=== PATIENT | female | born 1970 | race Two or more races ===

== ENCOUNTER 2018-09-11 14:58 | Emergency (ER) | payer SELFPAY ==
[~2018-09-11] VITALS: Ht 160 cm; Wt 54.4 kg
[2018-09-11 15:24] VITALS: BP 142/66
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
--- NOTE | 2018-09-11 16:19 | RAD ---
Bilateral RIBS with chest, 5 views, 09/11/2018: HISTORY: Rib pain, fevers No rib fracture is identified. There are moderate costochondral calcifications. There are scattered spurs in the spine. The heart size is normal. There is no evidence of pneumothorax, hemothorax or pulmonary consolidation. IMPRESSION: No significant rib abnormality is detected. Electronically signed by: Nick Mata MD (09/11/2018 4:15 PM) [facility]
[2018-09-11] MEDS ORDERED: HYDR-971 PO (16:35)
[2018-09-11] MEDS ORDERED: IBUP-1007 PO (16:35)
[2018-09-11] MEDS ORDERED: HYDROcodone/APAP 5/325MG 1 TAB TABLET PO ONE (16:45)
== END 2018-09-11 16:50 | disposition home or self-care (01) ==
LOC: ER 14:58
DX: R07.81 Pleurodynia (principal); E11.9 Type 2 diabetes mellitus without complications; R05 Cough; R50.9 Fever, unspecified
CPT/HCPCS: 71111; 99284

== ENCOUNTER 2019-05-07 07:28 | Emergency (ER) | payer SELFPAY ==
[~2019-05-07] VITALS: Ht 162.6 cm; Wt 50.8 kg
[~2019-05-07 07:28] MED LIST: HYDR-3164 PO; IBUP-1007 PO
[2019-05-07] MEDS ORDERED: IV NORMAL SALINE 1000ML BAG 1,000 ML IV SCH (07:50)
--- NOTE | 2019-05-07 07:55 | PHYS DOC ---
Past Medical History Past Medical History: Diabetes-Type II, Hypertension Past Surgical History: No Surgical History Alcohol Use: None Drug Use: None Adult General Chief Complaint Chief Complaint: ABDOMINAL PAIN HPI HPI Patient is a 48-year-old female who presents to the emergency department for evaluation of rectal quadrant pain, began gradually last night and has been worsening. The patient states she has had a few episodes of vomiting, and 2 episodes of diarrhea, both of which have been nonbloody. She st ates she had one episode of pain like this several years ago but it went away on its own. She has not had any fevers or chills, denies any chest pain shortness of breath. Palpation of the affected areas as well as movement worsen her pain. There are no alleviating factors to her symptoms. Review of Systems Review of Systems Constitutional: Denies fever or chills [] Eyes: Denies change in visual acuity, redness, or eye pain [] HENT: Denies nasal congestion or sore throat [] Respiratory: Denies cough or shortness of breath [] Cardiovascular: The patient denies any shortness of breath, chest pain, palpitations, or orthopnea [] GI: No additional information not addressed in HPI [] : Denies dysuria or hematuria. LMP about a month ago.[] Musculoskeletal: Denies back pain or joint pain [] Integument: Denies rash or skin lesions [] Neurologic: Denies headache, focal weakness or sensory changes [] Endocrine: Denies polyuria or polydipsia [] All other systems were reviewed and found to be within normal limits, except as documented in this note. Current Medications Current Medications Current Medications Medications (Trade) Dose Ordered Sig/Abigail Start Time Stop Time Status Last Admin Dose Admin Ceftriaxone Sodium (Rocephin) 1 gm 1X ONCE 05/07/19 08:30 05/07/19 08:34 DC 05/07/19 08:47 1 GM Hydromorphone HCl (Dilaudid) 1 mg PRN Q15MIN PRN 05/07/19 08:00 05/08/19 07:59 05/07/19 08:04 1 MG Info (CONTRAST GIVEN -- Rx MONITORING) 1 each PRN DAILY PRN 05/07/19 09:00 05/09/19 08:59 Insulin Human Regular (HumuLIN R VIAL) 5 unit 1X ONCE 05/07/19 09:30 05/07/19 09:41 DC Iohexol (Omnipaque 300 Mg/ml) 75 ml 1X ONCE 05/07/19 09:00 05/07/19 09:01 DC 05/07/19 09:08 75 ML Ondansetron HCl (Zofran) 4 mg 1X ONCE 05/07/19 08:00 05/07/19 08:01 DC 05/07/19 08:02 4 MG Sodium Chloride 1,000 ml @ 1,000 mls/hr 1X ONCE 05/07/19 08:45 05/07/19 09:44 DC 05/07/19 08:51 1,000 MLS/HR Allergies Allergies Allergies Coded Allergies Type Severity Reaction Last Updated Verified No Known Drug Allergies 09/11/18 No Physical Exam Physical Exam PHYSICAL EXAM: CONSTITUTIONAL: Well developed, well nourished HEAD: normocephalic, atraumatic EENT: PERRL, EOMI. Conjunctivae normal color, sclerae non-icteric; moist mucous membranes. NECK: Supple, non-tender; no meningismus. LUNGS: Lungs CTA, breathing even and unlabored. Normal air movement. HEART: Regular tachycardia, no murmur CHEST: No deformity; non-tender ABDOMEN: The abdomen is soft, there is right upper quadrant tenderness to palpation, Allen's sign is positive, the remainder the abdomen is soft and non- tender, no masses or bruits. Normal bowel sounds are present. EXTREM: Normal ROM; no deformity, no calf tenderness. Normal pulses palpable in all extremities. There is no pedal edema. SKIN: No rash; no diaphoresis NEURO: Alert; normal speech and cognition; CN's grossly intact; strength grossly intact without focal deficit. BACK: There is mild right-sided CVA TTP. Current Patient Data Vital Signs Vital Signs Date Time Temp Pulse Resp B/P (MAP) Pulse Ox O2 Delivery O2 Flow Rate FiO2 05/07/19 08:55 13 95 Room Air 05/07/19 08:45 120 171/77 (108) 05/07/19 07:30 98.1 98.1 Lab Values Laboratory Tests Test 05/07/19 07:36 05/07/19 07:53 05/07/19 07:55 05/07/19 08:40 Urine Collection Type Unknown Urine Color Yellow Urine Clarity Cloudy Urine pH 6.0 Urine Specific [place] >=1.030 Urine Protein >=300 mg/dL (NEG-TRACE) Urine Glucose (UA) >=1000 mg/dL (NEG) Urine Ketones (Stick) Negative mg/dL (NEG) Urine Blood Moderate (NEG) Urine Nitrite Positive (NEG) Urine Bilirubin Negative (NEG) Urine Urobilinogen Dipstick 0.2 mg/dL (0.2 mg/dL) Urine Leukocyte Esterase Small (NEG) Urine RBC 3-5 /HPF (0-2) Urine WBC 11-20 /HPF (0-4) Urine Squamous Epithelial Cells Mod /LPF Urine Bacteria Many /HPF (0-FEW) POC Urine HCG, Qualitative Hcg negative (Negative) White Blood Count 9.7 x10^3/uL (4.0-11.0) Red Blood Count 4.53 x10^6/uL (3.50-5.40) Hemoglobin 13.0 g/dL (12.0-15.5) Hematocrit 37.7 % (36.0-47.0) Mean Corpuscular Volume 83 fL (79-100) Mean Corpuscular Hemoglobin 29 pg (25-35) Mean Corpuscular Hemoglobin Concent 34 g/dL (31-37) Red Cell Distribution Width 14.6 % (11.5-14.5) H Platelet Count 222 x10^3/uL (140-400) Neutrophils (%) (Auto) 88 % (31-73) H Lymphocytes (%) (Auto) 9 % (24-48) L Monocytes (%) (Auto) 1 % (0-9) Eosinophils (%) (Auto) 1 % (0-3) Basophils (%) (Auto) 1 % (0-3) Neutrophils # (Auto) 8.6 x10^3uL (1.8-7.7) H Lymphocytes # (Auto) 0.9 x10^3/uL (1.0-4.8) L Monocytes # (Auto) 0.1 x10^3/uL (0.0-1.1) Eosinophils # (Auto) 0.1 x10^3/uL (0.0-0.7) Basophils # (Auto) 0.1 x10^3/uL (0.0-0.2) Segmented Neutrophils % 75 % (35-66) H Band Neutrophils % 17 % (0-9) H Lymphocytes % 6 % (24-48) L Monocytes % 2 % (0-10) Platelet Estimate Adequate (ADEQUATE) Sodium Level 136 mmol/L (136-145) Potassium Level 3.4 mmol/L (3.5-5.1) L Chloride Level 101 mmol/L (98-107) Carbon Dioxide Level 26 mmol/L (21-32) Anion Gap 9 (6-14) Blood Urea Nitrogen 14 mg/dL (7-20) Creatinine 0.9 mg/dL (0.6-1.0) Estimated GFR (Cockcroft-Gault) 66.5 BUN/Creatinine Ratio 16 (6-20) Glucose Level 466 mg/dL (70-99) H Calcium Level 8.8 mg/dL (8.5-10.1) Total Bilirubin 0.5 mg/dL (0.2-1.0) Aspartate Amino Transferase (AST) 35 U/L (15-37) Alanine Aminotransferase (ALT) 36 U/L (14-59) Alkaline Phosphatase 193 U/L (46-116) H Troponin I Quantitative < 0.017 ng/mL (0.000-0.055) Total Protein 7.1 g/dL (6.4-8.2) Albumin 2.7 g/dL (3.4-5.0) L Albumin/Globulin Ratio 0.6 (1.0-1.7) L Lipase 233 U/L (73-393) Lactic Acid Level 1.4 mmol/L (0.4-2.0) Test 05/07/19 09:21 Glucose (Fingerstick) 372 mg/dL (70-99) H Laboratory Tests 05/07/19 07:55 Laboratory Tests 05/07/19 07:55 EKG EKG Normal sinus rhythm at a rate of 122 beats for minute, normal axis, normal intervals, nonspecific ST/T changes[] Radiology/Procedures Radiology/Procedures [PROCEDURE: ABDOMEN LTD Exam: Right Upper Quadrant Ultrasound 05/07/2019 7:50 AM Indication: Right upper quadrant pain Technique: Multiple realtime grayscale sonographic images were obtained over the abdomen. Static images were submitted for interpretation. Comparisons: None Visualized pancreas is unremarkable in appearance. Visualized IVC is unremarkable. The liver appears to be grossly normal in echotexture. The liver is grossly normal in size. No focal hepatic lesions are identified on provided images. No intrahepatic biliary dilatation is seen. The gallbladder is mildly distended. What appears to be inspissated sludge, possibly with component of small gallstones is seen within the dependent portion of the gallbladder. No gallbladder wall thickening is identified. No pericholecystic fluid is seen. The common bile duct is top normal in diameter measuring 5 mm. Right kidney is normal in appearance measuring 13 cm in length. IMPRESSION: 1. Inspissated sludge and possibly small stones within the gallbladder. No evidence of acute cholecystitis is identified by ultrasound. ] PROCEDURE: CT ABD PELV W/ IV CONTRST ONLY PQRS Compliance Statement: One or more of the following individualized dose reduction techniques were utilized for this examination: 1. Automated exposure control 2. Adjustment of the mA and/or kV according to patient size 3. Use of iterative reconstruction technique CT abdomen/pelvis with contrast 05/07/2019 8:43 AM INDICATION: Right-sided abdominal pain COMPARISON: None available TECHNIQUE: Multiple axial CT images of the abdomen and pelvis were obtained after the intravenous administration of nonionic contrast. Coronal and sagittal reformats are provided. FINDINGS: Lung bases are clear. Heart size is within normal limits. Liver, spleen, bilateral adrenal glands and pancreas are normal in appearance. Focal high density is identified within the dependent portion of the bladder suggestive of gallstones. Small and large bowel are normal in caliber. There is no evidence for bowel obstruction. There are no pericolonic inflammatory changes. A normal, nondilated appendix is visualized without adjacent inflammatory changes. Abdominal aorta is normal in course and caliber. There is no free intraperitoneal air. There is a striated nephrogram on the right predominantly involving the posterior and superomedial right kidney. Extensive right perinephric fat stranding is identified. There is urothelial enhancement on the right renal pelvis and right ureter. Right periureteral fat stranding is identified. Small volume ascites is identified in the right retroperitoneum. Gas is identified within the urinary bladder. Correlate with any recent instrumentation. No hydronephrosis. Left kidney is normal in appearance. IUD is present. Superior plate compression deformity of T12 appears chronic with mild retropulsion of the superior endplate and 50 percent height loss. IMPRESSION: 1. Striated nephrogram on the right with extensive perinephric and periureteral fat stranding suspicious for pyelonephritis. Urothelial enhancement along the right ureter is compatible with pyelitis. 2. Gas identified within the urinary bladder. Correlate with any history of recent instrumentation. 3. IUD is present. 4. Chronic appearing superior endplate compression deformity at T12 with 50 percent height loss and mild retropulsion. 5. Suspect cholelithiasis versus polyp. Course & Med Decision Making Course & Med Decision Making Pertinent Labs and Imaging studies reviewed. (See chart for details) []9:50 AM: The patient's condition remains stable, she is feeling better, and her tachycardia has improved after IV hydration. After thorough evaluation, I do not feel that her gallbladder is the cause of her symptoms today, although she certainly will need this further evaluated as an outpatient. I discussed the case with the patient via her nurse, who is bilingual, discussed the diagnosis, test results, home care plan, need for follow-up, and return precautions. The patient does take metformin for diabetes. Dragon Disclaimer Dragon Disclaimer This electronic medical record was generated, in whole or in part, using a voice recognition dictation system. Departure Departure Impression: Primary Impression: Pyelonephritis Additional Impressions: Hyperglycemia Cholelithiasis Disposition: 01 HOME, SELF-CARE Condition: STABLE Referrals: REMY ROCHA MD Patient Instructions: Cholelithiasis, Hyperglycemia, Pyelonephritis, Adult Additional Instructions: Follow-up with your primary care for further monitoring and evaluation of your urinary tract infection as well as your diabetes. Follow-up with general surgery for further evaluation of your gallbladder, using the phone number provided. Scripts Ondansetron Hcl (ZOFRAN) 4 Mg Tablet 1 TAB PO Q6HRS PRN for NAUSEA/VOMITING, #20 TAB Prov: BURTON CAMPBELL MD 05/07/19 Acetaminophen With Codeine (TYLENOL WITH CODEINE #3 TABLET) 1 Each Tablet 1 TAB PO PRN Q6HRS PRN for PAIN, #15 TAB Prov: BURTON CAMPBELL MD 05/07/19 Sulfamethoxazole/Trimethoprim (BACTRIM DS TABLET) 1 Each Tablet 1 TAB PO BID, #20 TAB Prov: BURTON CAMPBELL MD 05/07/19 Problem Qualifiers BURTON CAMPBELL MD May 07, 2019 07:55
[2019-05-07] MEDS ORDERED: HYDROmorphone 2 MG/ML VIAL IV/SQ PRN (08:00)
[2019-05-07] MEDS ORDERED: ONDANSETRON PF 4 MG/2 ML VIAL. IV ONE (08:00)
[2019-05-07 08:04] LABS: BASO # 0.1 x10^3/uL (0.0-0.2); BASO % 1 % (0-3); EOS # 0.1 x10^3/uL (0.0-0.7); EOS % 1 % (0-3); HEMATOCRIT 37.7 % (36.0-47.0); LYMPH # 0.9 x10^3/uL (1.0-4.8); LYMPH % 9 % (24-48); MEAN CORPUSCULAR HEMOGLOBIN 29 pg (25-35); MEAN CORPUSCULAR HGB CONC 34 g/dL (31-37); MEAN CORPUSCULAR VOLUME 83 fL (79-100); MONO # 0.1 x10^3/uL (0.0-1.1); MONO % 1 % (0-9); NEUT # 8.6 x10^3uL (1.8-7.7); NEUT % 88 % (31-73); PLATELET COUNT 222 x10^3/uL (140-400); RED BLOOD COUNT 4.53 x10^6/uL (3.50-5.40); RED CELL DISTRIBUTION WIDTH 14.6 % (11.5-14.5); WHITE BLOOD COUNT 9.7 x10^3/uL (4.0-11.0)
[2019-05-07 08:08] LABS: BILIRUBIN,URINE NEGATIVE (NEG); CLARITY,URINE CLOUDY; COLOR,URINE YELLOW; NITRITE,URINE POSITIVE (NEG); PROTEIN,URINE >=300 mg/dL (NEG-TRACE); UROBILINOGEN,URINE 0.2 mg/dL (0.2 mg/dL)
[2019-05-07 08:20] LABS: SQUAMOUS EPITHELIAL CELL,UR MOD /LPF
[2019-05-07 08:22] LABS: BACTERIA,URINE MANY /HPF (0-FEW)
[2019-05-07 08:27] LABS: CALCIUM 8.8 mg/dL (8.5-10.1); CREATININE 0.9 mg/dL (0.6-1.0); GFR 66.5; POTASSIUM 3.4 mmol/L (3.5-5.1)
--- NOTE | 2019-05-07 08:27 | RAD ---
Exam: Right Upper Quadrant Ultrasound 05/07/2019 7:50 AM Indication: Right upper quadrant pain Technique: Multiple realtime grayscale sonographic images were obtained over the abdomen. Static images were submitted for interpretation. Comparisons: None Visualized pancreas is unremarkable in appearance. Visualized IVC is unremarkable. The liver appears to be grossly normal in echotexture. The liver is grossly normal in size. No focal hepatic lesions are identified on provided images. No intrahepatic biliary dilatation is seen. The gallbladder is mildly distended. What appears to be inspissated sludge, possibly with component of small gallstones is seen within the dependent portion of the gallbladder. No gallbladder wall thickening is identified. No pericholecystic fluid is seen. The common bile duct is top normal in diameter measuring 5 mm. Right kidney is normal in appearance measuring 13 cm in length. IMPRESSION: 1. Inspissated sludge and possibly small stones within the gallbladder. No evidence of acute cholecystitis is identified by ultrasound. Electronically signed by: Kiet Bee MD (05/07/2019 8:24 AM) [id number]
[2019-05-07] MEDS ORDERED: cefTRIAXone IV Push 1 GM VIAL. IVP ONE (08:30)
[2019-05-07 08:33] LABS: ALBUMIN 2.7 g/dL (3.4-5.0); ALBUMIN/GLOBULIN RATIO 0.6 (1.0-1.7); TOTAL BILIRUBIN 0.5 mg/dL (0.2-1.0); TOTAL PROTEIN 7.1 g/dL (6.4-8.2)
--- NOTE | 2019-05-07 08:44 | EKG ---
[facility] [address] [place] [address] Test Date: 2019-05-07 Test Time: 08:15:36 Pat Name: CRISTOBAL WHEATLEY Department: Room: Gender: F Licensed Practical Nurse Clinic Nurse: : 1970 Requested By: BURTON CAMPBELL Order Number: [id number] Reading MD: Measurements Intervals [place] Rate: 122 P: 38 AL: 116 QRS: 34 QRSD: 88 T: 14 QT: 360 QTc: 514 Interpretive Statements SINUS TACHYCARDIA NO SPECIFIC ECG ABNORMALITIES RI6.01 No previous ECG available for comparison
[2019-05-07] MEDS ORDERED: IV NORMAL SALINE 1000ML BAG 1,000 ML IV ONE (08:45)
[2019-05-07 08:46] LABS: % BANDS 17 % (0-9); % LYMPHS 6 % (24-48); % MONOS 2 % (0-10); % SEGS 75 % (35-66)
[2019-05-07 08:47] LABS: PLT ESTIMATE ADEQUATE (ADEQUATE)
[2019-05-07] MEDS ORDERED: IOHEXOL 300 MG/ML 100ML VIAL. IV ONE (09:00)
[2019-05-07] MEDS ORDERED: CONTRAST GIVEN. MC PRN (09:00)
--- NOTE | 2019-05-07 09:24 | RAD ---
PQRS Compliance Statement: One or more of the following individualized dose reduction techniques were utilized for this examination: 1. Automated exposure control 2. Adjustment of the mA and/or kV according to patient size 3. Use of iterative reconstruction technique CT abdomen/pelvis with contrast 05/07/2019 8:43 AM INDICATION: Right-sided abdominal pain COMPARISON: None available TECHNIQUE: Multiple axial CT images of the abdomen and pelvis were obtained after the intravenous administration of nonionic contrast. Coronal and sagittal reformats are provided. FINDINGS: Lung bases are clear. Heart size is within normal limits. Liver, spleen, bilateral adrenal glands and pancreas are normal in appearance. Focal high density is identified within the dependent portion of the bladder suggestive of gallstones. Small and large bowel are normal in caliber. There is no evidence for bowel obstruction. There are no pericolonic inflammatory changes. A normal, nondilated appendix is visualized without adjacent inflammatory changes. Abdominal aorta is normal in course and caliber. There is no free intraperitoneal air. There is a striated nephrogram on the right predominantly involving the posterior and superomedial right kidney. Extensive right perinephric fat stranding is identified. There is urothelial enhancement on the right renal pelvis and right ureter. Right periureteral fat stranding is identified. Small volume ascites is identified in the right retroperitoneum. Gas is identified within the urinary bladder. Correlate with any recent instrumentation. No hydronephrosis. Left kidney is normal in appearance. IUD is present. Superior plate compression deformity of T12 appears chronic with mild retropulsion of the superior endplate and 50 percent height loss. IMPRESSION: 1. Striated nephrogram on the right with extensive perinephric and periureteral fat stranding suspicious for pyelonephritis. Urothelial enhancement along the right ureter is compatible with pyelitis. 2. Gas identified within the urinary bladder. Correlate with any history of recent instrumentation. 3. IUD is present. 4. Chronic appearing superior endplate compression deformity at T12 with 50 percent height loss and mild retropulsion. 5. Suspect cholelithiasis versus polyp. Electronically signed by: Geno Portillo MD (05/07/2019 9:21 AM) [id number]
[2019-05-07] MEDS ORDERED: INSULIN REGULAR 100 UNIT/ML 3ML VIAL. IV ONE (09:30)
[2019-05-07] MEDS ORDERED: ONDA4TAB7 PO (09:57)
[2019-05-07] MEDS ORDERED: ACET-704 PO (09:57)
[2019-05-07] MEDS ORDERED: SULF1TAB24 PO (09:57)
[2019-05-07 10:11] VITALS: BP 107/56
== END 2019-05-07 10:42 | disposition home or self-care (01) ==
LOC: ER 07:28
DX: N12 Tubulo-interstitial nephritis, not specified as acute or chronic (principal); K80.20 Calculus of gallbladder without cholecystitis without obstruction; E11.65 Type 2 diabetes mellitus with hyperglycemia; I10 Essential (primary) hypertension; R19.7 Diarrhea, unspecified
CPT/HCPCS: 36415; 74177; 76705; 80053; 81001; 81025; 82962; 83605; 83690; 84484; 85007; 85025; 87040; 87086; 93005; 96361; 96374; 96375; 99285; J0696; J1170; J1815; J2405; J7030; Q9967

== ENCOUNTER 2019-05-28 22:27 | Emergency (ER) | payer SELFPAY ==
[~2019-05-28] VITALS: Ht 149.9 cm; Wt 50.8 kg
[~2019-05-28 22:27] MED LIST changes: +ACET-704 PO; +ONDA4TAB7 PO; +SULF1TAB24 PO
--- NOTE | 2019-05-28 23:18 | PHYS DOC ---
Past Medical History Past Medical History: Diabetes-Type II, Hypertension Past Surgical History: No Surgical History Alcohol Use: None Drug Use: None Adult General Chief Complaint Chief Complaint: FLANK PAIN HPI HPI Patient is a 48-year-old female who presents with two-hour history of acute flank pain. Patient states that pain started in her right back and has gotten to wear its radiating around to the front. She has had some nausea and vomiting. Patient does admit to a history of kidney stones. She rates pain to be a 10 out of 10. Patient states that nothing improves the pain. She describes pain as like a deep ache throughout her flank. She denies any urinary discomfort.[] Review of Systems Review of Systems Constitutional: Denies fever or chills [] Respiratory: Denies cough or shortness of breath [] Cardiovascular: No additional information not addressed in HPI [] GI: Complains of right flank/abdominal pain with nausea and vomiting. Denies diarrhea [] : Denies dysuria or hematuria [] Musculoskeletal: Complains of right-sided lower back pain [] All other systems were reviewed and found to be within normal limits, except as documented in this note. Current Medications Current Medications Current Medications Medications (Trade) Dose Ordered Sig/Abigail Start Time Stop Time Status Last Admin Dose Admin Ceftriaxone Sodium (Rocephin) 1 gm 1X ONCE 05/29/19 00:45 05/29/19 00:46 DC 05/29/19 00:54 1 GM Hydromorphone HCl (Dilaudid) 0.5 mg PRN Q15MIN PRN 05/28/19 23:30 05/29/19 23:29 05/29/19 00:03 0.5 MG Insulin Human Regular (HumuLIN R VIAL) 15 unit 1X ONCE 05/29/19 00:30 05/29/19 00:31 DC 05/29/19 00:53 15 UNIT Ondansetron HCl (Zofran) 4 mg 1X ONCE 05/28/19 23:30 05/28/19 23:31 DC 05/29/19 00:01 4 MG Sodium Chloride 1,000 ml @ 1,000 mls/hr Q1H 05/28/19 23:30 05/29/19 00:29 DC 05/29/19 00:05 1,000 MLS/HR Allergies Allergies Allergies Coded Allergies Type Severity Reaction Last Updated Verified No Known Drug Allergies 09/11/18 No Physical Exam Physical Exam Constitutional: Well developed, well nourished, in mild distress, non-toxic appearance. [] HENT: Normocephalic, atraumatic, bilateral external ears normal, oropharynx moist, no oral exudates, nose normal. [] Eyes: PERRLA, EOMI, conjunctiva normal, no discharge. [] Neck: Normal range of motion, no tenderness, supple, no stridor. [] Cardiovascular:Heart rate regular rhythm, no murmur [] Lungs & Thorax: Bilateral breath sounds clear to auscultation [] Abdomen: Bowel sounds normal, soft, no tenderness. [] Skin: Warm, dry, no erythema, no rash. [] Extremities: No tenderness, no cyanosis, no clubbing, ROM intact, no edema. [] Neurologic: Alert and oriented X 3, no focal deficits noted. [] Current Patient Data Vital Signs Vital Signs Date Time Temp Pulse Resp B/P (MAP) Pulse Ox O2 Delivery O2 Flow Rate FiO2 05/29/19 00:03 16 97 Room Air 05/28/19 22:43 98.1 109 106/57 (73) 98.1 Lab Values Laboratory Tests Test 05/28/19 22:50 05/28/19 22:55 05/28/19 23:58 Urine Collection Type Void Urine Color Yellow Urine Clarity Cloudy Urine pH 5.5 Urine Specific [place] >=1.030 Urine Protein 100 mg/dL (NEG-TRACE) Urine Glucose (UA) >=1000 mg/dL (NEG) Urine Ketones (Stick) Negative mg/dL (NEG) Urine Blood Large (NEG) Urine Nitrite Negative (NEG) Urine Bilirubin Negative (NEG) Urine Urobilinogen Dipstick 0.2 mg/dL (0.2 mg/dL) Urine Leukocyte Esterase Small (NEG) Urine RBC Tntc /HPF (0-2) Urine WBC Tntc /HPF (0-4) Urine Squamous Epithelial Cells Few /LPF Urine Bacteria Many /HPF (0-FEW) POC Urine HCG, Qualitative Hcg negative (Negative) White Blood Count 11.5 x10^3/uL (4.0-11.0) H Red Blood Count 4.54 x10^6/uL (3.50-5.40) Hemoglobin 13.0 g/dL (12.0-15.5) Hematocrit 37.8 % (36.0-47.0) Mean Corpuscular Volume 83 fL (79-100) Mean Corpuscular Hemoglobin 29 pg (25-35) Mean Corpuscular Hemoglobin Concent 35 g/dL (31-37) Red Cell Distribution Width 14.8 % (11.5-14.5) H Platelet Count 233 x10^3/uL (140-400) Neutrophils (%) (Auto) 93 % (31-73) H Lymphocytes (%) (Auto) 4 % (24-48) L Monocytes (%) (Auto) 3 % (0-9) Eosinophils (%) (Auto) 0 % (0-3) Basophils (%) (Auto) 0 % (0-3) Neutrophils # (Auto) 10.7 x10^3/uL (1.8-7.7) H Lymphocytes # (Auto) 0.5 x10^3/uL (1.0-4.8) L Monocytes # (Auto) 0.3 x10^3/uL (0.0-1.1) Eosinophils # (Auto) 0.0 x10^3/uL (0.0-0.7) Basophils # (Auto) 0.0 x10^3/uL (0.0-0.2) Platelet Estimate Pending Sodium Level 131 mmol/L (136-145) L Potassium Level 3.9 mmol/L (3.5-5.1) Chloride Level 95 mmol/L (98-107) L Carbon Dioxide Level 27 mmol/L (21-32) Anion Gap 9 (6-14) Blood Urea Nitrogen 17 mg/dL (7-20) Creatinine 1.1 mg/dL (0.6-1.0) H Estimated GFR (Cockcroft-Gault) 52.8 BUN/Creatinine Ratio 15 (6-20) Glucose Level 590 mg/dL (70-99) *H Calcium Level 8.6 mg/dL (8.5-10.1) Total Bilirubin 0.7 mg/dL (0.2-1.0) Aspartate Amino Transferase (AST) 23 U/L (15-37) Alanine Aminotransferase (ALT) 30 U/L (14-59) Alkaline Phosphatase 204 U/L (46-116) H Total Protein 6.4 g/dL (6.4-8.2) Albumin 2.7 g/dL (3.4-5.0) L Albumin/Globulin Ratio 0.7 (1.0-1.7) L Laboratory Tests 05/28/19 23:58 Laboratory Tests 05/28/19 23:58 EKG EKG [] Radiology/Procedures Radiology/Procedures [] Impressions: PROCEDURE: CT ABDOMEN PELVIS WO CONTRAST INDICATION: Right flank pain COMPARISON: May 07, 2019 TECHNIQUE: Axial CT images obtained through the abdomen and pelvis without contrast. Limited assessment of solid organ structures and vasculature secondary to lack of intravenous contrast.. One or more of the following individualized dose reduction techniques were utilized for this examination: 1. Automated exposure control; 2. Adjustment of the mA and/or kV according to patient size; 3. Use of iterative reconstruction technique. FINDINGS: Moderate calcific atherosclerosis. Suspected gallstones. Gallbladder somewhat distended at time of exam. Poor evaluation of pancreas without contrast. Spleen unremarkable. No left-sided hydronephrosis. Urinary bladder wall is prominent with air within the urinary bladder. Intrauterine device. Fluid and edema seen adjacent to the right kidney. The appendix is likely partially seen without definitive adjacent inflammatory changes. Calcification left side of uterus, could be from causes such as fibroid. Edema of soft tissues. Degenerative changes the spine with multilevel central canal and neural foraminal stenosis. IMPRESSION: 1. There is repeat demonstration of edema and fluid adjacent to the right kidney. Again this could be secondary to infectious causes such as pyelonephritis. 2. The urinary bladder also has a prominent appearing wall therefore cystitis is also a possibility. There is again air within the urinary bladder. Would correlate as to whether the patient had recent instrumentation that could introduce air to ensure that this is not secondary to a pathologic cause such as a fistula to the bowel or infection with a gas-forming organism. 3. Moderate compression fracture of T12 with retropulsion again seen. 4. Gallstones. Electronically signed by: Madhav Pandey MD (05/29/2019 12:09 AM) [facility] Course & Med Decision Making Course & Med Decision Making Pertinent Labs and Imaging studies reviewed. (See chart for details) [] Dragon Disclaimer Dragon Disclaimer This electronic medical record was generated, in whole or in part, using a voice recognition dictation system. Departure Departure Impression: Primary Impression: Urinary tract infection Additional Impression: Hyperglycemia Disposition: 01 HOME, SELF-CARE Condition: STABLE Referrals: NO PCP (PCP) Patient Instructions: Hyperglycemia, Pyelonephritis, Adult Scripts Promethazine Hcl (PROMETHAZINE HCL) 12.5 Mg Tablet 1 TAB PO Q6HRS PRN for NAUSEA, #12 TAB Prov: AN JADE Jr. DO 05/29/19 Hydrocodone/Apap 5-325 (NORCO 5-325 TABLET) 1 Each Tablet 1 EACH PO PRN Q6HRS PRN for PAIN, #15 as needed for pain Prov: AN JADE Jr. DO 05/29/19 Sulfamethoxazole/Trimethoprim (BACTRIM DS TABLET) 1 Each Tablet 1 TAB PO BID, #20 TAB Prov: AN AJDE Jr. DO 05/29/19 Problem Qualifiers Primary Impression: Urinary tract infection Urinary tract infection type: site unspecified Hematuria presence: with hematuria Qualified Codes: N39.0 - Urinary tract infection, site not specified; R31.9 - Hematuria, unspecified AN JADE Jr. DO May 28, 2019 23:18
[2019-05-28 23:21] LABS: BILIRUBIN,URINE NEGATIVE (NEG); CLARITY,URINE CLOUDY; COLOR,URINE YELLOW; NITRITE,URINE NEGATIVE (NEG); PH,URINE 5.5; PROTEIN,URINE 100 mg/dL (NEG-TRACE); UROBILINOGEN,URINE 0.2 mg/dL (0.2 mg/dL)
[2019-05-28] MEDS ORDERED: IV NORMAL SALINE 1000ML BAG 1,000 ML IV SCH (23:30)
[2019-05-28] MEDS ORDERED: HYDROmorphone 2 MG/ML VIAL IV/SQ PRN (23:30)
[2019-05-28] MEDS ORDERED: ONDANSETRON PF 4 MG/2 ML VIAL. IV ONE (23:30)
[2019-05-28 23:31] LABS: BACTERIA,URINE MANY /HPF (0-FEW); RBC,URINE TNTC /HPF (0-2); SQUAMOUS EPITHELIAL CELL,UR FEW /LPF; WBC,URINE TNTC /HPF (0-4)
[2019-05-29 00:03] LABS: BASO % 0 % (0-3); EOS % 0 % (0-3); HEMATOCRIT 37.8 % (36.0-47.0); LYMPH # 0.5 x10^3/uL (1.0-4.8); LYMPH % 4 % (24-48); MEAN CORPUSCULAR HEMOGLOBIN 29 pg (25-35); MEAN CORPUSCULAR HGB CONC 35 g/dL (31-37); MEAN CORPUSCULAR VOLUME 83 fL (79-100); MONO # 0.3 x10^3/uL (0.0-1.1); MONO % 3 % (0-9); NEUT # 10.7 x10^3/uL (1.8-7.7); NEUT % 93 % (31-73); PLATELET COUNT 233 x10^3/uL (140-400); RED BLOOD COUNT 4.54 x10^6/uL (3.50-5.40); RED CELL DISTRIBUTION WIDTH 14.8 % (11.5-14.5); WHITE BLOOD COUNT 11.5 x10^3/uL (4.0-11.0)
--- NOTE | 2019-05-29 00:12 | RAD ---
INDICATION: Right flank pain COMPARISON: May 07, 2019 TECHNIQUE: Axial CT images obtained through the abdomen and pelvis without contrast. Limited assessment of solid organ structures and vasculature secondary to lack of intravenous contrast.. One or more of the following individualized dose reduction techniques were utilized for this examination: 1. Automated exposure control; 2. Adjustment of the mA and/or kV according to patient size; 3. Use of iterative reconstruction technique. FINDINGS: Moderate calcific atherosclerosis. Suspected gallstones. Gallbladder somewhat distended at time of exam. Poor evaluation of pancreas without contrast. Spleen unremarkable. No left-sided hydronephrosis. Urinary bladder wall is prominent with air within the urinary bladder. Intrauterine device. Fluid and edema seen adjacent to the right kidney. The appendix is likely partially seen without definitive adjacent inflammatory changes. Calcification left side of uterus, could be from causes such as fibroid. Edema of soft tissues. Degenerative changes the spine with multilevel central canal and neural foraminal stenosis. IMPRESSION: 1. There is repeat demonstration of edema and fluid adjacent to the right kidney. Again this could be secondary to infectious causes such as pyelonephritis. 2. The urinary bladder also has a prominent appearing wall therefore cystitis is also a possibility. There is again air within the urinary bladder. Would correlate as to whether the patient had recent instrumentation that could introduce air to ensure that this is not secondary to a pathologic cause such as a fistula to the bowel or infection with a gas-forming organism. 3. Moderate compression fracture of T12 with retropulsion again seen. 4. Gallstones. Electronically signed by: Madhav Pandey MD (05/29/2019 12:09 AM) [facility]
[2019-05-29 00:18] LABS: ALBUMIN 2.7 g/dL (3.4-5.0); ALBUMIN/GLOBULIN RATIO 0.7 (1.0-1.7); CALCIUM 8.6 mg/dL (8.5-10.1); CREATININE 1.1 mg/dL (0.6-1.0); GFR 52.8; POTASSIUM 3.9 mmol/L (3.5-5.1); TOTAL BILIRUBIN 0.7 mg/dL (0.2-1.0); TOTAL PROTEIN 6.4 g/dL (6.4-8.2)
[2019-05-29] MEDS ORDERED: INSULIN REGULAR 100 UNIT/ML 3ML VIAL. IV ONE (00:30)
[2019-05-29] MEDS ORDERED: cefTRIAXone IV Push 1 GM VIAL. IVP ONE (00:45)
[2019-05-29] MEDS ORDERED: HYDR-3164 PO (02:11)
[2019-05-29] MEDS ORDERED: PROM12.58 PO (02:11)
[2019-05-29] MEDS ORDERED: SULF1TAB24 PO (02:11)
[2019-05-29 02:28] LABS: % BANDS 17 % (0-9); % LYMPHS 7 % (24-48); % MONOS 1 % (0-10); % SEGS 75 % (35-66); PLT ESTIMATE ADEQUATE (ADEQUATE)
[2019-05-29 02:30] VITALS: BP 90/58
== END 2019-05-29 02:34 | disposition home or self-care (01) ==
LOC: ER 22:27
DX: N39.0 Urinary tract infection, site not specified (principal); E11.65 Type 2 diabetes mellitus with hyperglycemia; R11.2 Nausea with vomiting, unspecified; I10 Essential (primary) hypertension; Z87.442 Personal history of urinary calculi
CPT/HCPCS: 36415; 74176; 80053; 81001; 81025; 82962; 85007; 85025; 87086; 87186; 96361; 96374; 96375; 99285; J0696; J1170; J1815; J2405; J7030; 99284

== ENCOUNTER 2019-10-27 18:32 | Emergency (ER) | payer SELFPAY ==
[~2019-10-27] VITALS: Ht 165.1 cm; Wt 54.4 kg
[~2019-10-27 18:32] MED LIST changes: +PROM12.58 PO
[2019-10-27] MEDS ORDERED: LIDOCAINE 2% 20 ML VIAL. IJ STA (19:23)
[2019-10-27 19:50] LABS: BASO # 0.1 x10^3/uL (0.0-0.2); BASO % 1 % (0-3); EOS % 1 % (0-3); HEMATOCRIT 35.9 % (36.0-47.0); HEMOGLOBIN 12.4 g/dL (12.0-15.5); LYMPH # 1.2 x10^3/uL (1.0-4.8); LYMPH % 19 % (24-48); MEAN CORPUSCULAR HEMOGLOBIN 30 pg (25-35); MEAN CORPUSCULAR HGB CONC 35 g/dL (31-37); MEAN CORPUSCULAR VOLUME 86 fL (79-100); MONO # 0.4 x10^3/uL (0.0-1.1); MONO % 6 % (0-9); NEUT # 4.6 x10^3/uL (1.8-7.7); NEUT % 73 % (31-73); PLATELET COUNT 276 x10^3/uL (140-400); RED BLOOD COUNT 4.15 x10^6/uL (3.50-5.40); RED CELL DISTRIBUTION WIDTH 13.6 % (11.5-14.5); WHITE BLOOD COUNT 6.2 x10^3/uL (4.0-11.0)
[2019-10-27 20:01] LABS: ALBUMIN 2.7 g/dL (3.4-5.0); ALBUMIN/GLOBULIN RATIO 0.6 (1.0-1.7); CALCIUM 8.8 mg/dL (8.5-10.1); CREATININE 1.2 mg/dL (0.6-1.0); GFR 47.6; POTASSIUM 4.1 mmol/L (3.5-5.1); TOTAL BILIRUBIN 0.3 mg/dL (0.2-1.0); TOTAL PROTEIN 7.4 g/dL (6.4-8.2)
[2019-10-27] MEDS ORDERED: KETOROLAC 15 MG/ML VIAL. IV STA (20:02)
--- NOTE | 2019-10-27 20:02 | PHYS DOC ---
Past Medical History Past Medical History: Diabetes-Type II, Hypertension Past Surgical History: No Surgical History Alcohol Use: None Drug Use: None Adult General Chief Complaint Chief Complaint: HEADACHE HPI HPI Patient is a 49 year old female who presents with right-sided headache located in the occipital portion of the head, neck pain, light sensitivity, noise sensitivity, dizziness that started 3 hours ago. The patient rates her pain as 8 out of 10 in severity. Patient also having nausea, and vomiting. Denies history of migraines. [employer] # [id number] Review of Systems Review of Systems Constitutional: Denies fever or chills [] Eyes: Denies change in visual acuity, redness, or eye pain [] HENT: Denies nasal congestion or sore throat [] Respiratory: Denies cough or shortness of breath [] Cardiovascular: No additional information not addressed in HPI [] GI: Reports nausea, and vomiting, Denies abdominal pain, bloody stools or diarrhea [] : Denies dysuria or hematuria [] Musculoskeletal: Reports right upper back pain/neck pain. Integument: Denies rash or skin lesions [] Neurologic: Reports dizziness, and headache, Denies focal weakness or sensory changes [] Endocrine: Denies polyuria or polydipsia [] Complete systems were reviewed and found to be within normal limits, except as documented in this note. Current Medications Current Medications Current Medications Medications (Trade) Dose Ordered Sig/Abigail Start Time Stop Time Status Last Admin Dose Admin Insulin Human Regular (HumuLIN R VIAL) 10 unit 1X STAT 10/27/19 20:05 10/27/19 20:08 DC 10/27/19 20:21 10 UNIT Ketorolac Tromethamine (Toradol 15mg Vial) 10 mg 1X STAT 10/27/19 20:02 10/27/19 20:08 DC Lidocaine HCl 20 ml 1X STAT 10/27/19 19:23 10/27/19 19:27 DC 10/27/19 19:23 20 ML Orphenadrine Citrate (Norflex) 60 mg 1X ONCE 10/27/19 20:15 10/27/19 20:16 DC Prochlorperazine Edisylate (Compazine) 10 mg 1X ONCE 10/27/19 20:15 10/27/19 20:16 DC Sodium Chloride 1,000 ml @ 1,000 mls/hr 1X STAT 10/27/19 20:05 10/27/19 21:04 DC 10/27/19 20:05 1,000 MLS/HR Allergies Allergies Allergies Coded Allergies Type Severity Reaction Last Updated Verified No Known Drug Allergies 09/11/18 No Physical Exam Physical Exam Constitutional: Well developed, well nourished, no acute distress, non-toxic appearance. [] HENT: Normocephalic, atraumatic, bilateral external ears normal, oropharynx moist, no oral exudates, nose normal. [] Eyes: PERRLA, EOMI, conjunctiva normal, no discharge. [] Neck: trigger points to right neck and into upper back along trap muscle, supple, no stridor. [] Cardiovascular:Heart rate regular rhythm, no murmur [] Lungs & Thorax: Bilateral breath sounds clear to auscultation [] Abdomen: Bowel sounds normal, soft, no tenderness, no masses, no pulsatile masses. [] Skin: Warm, dry, no erythema, no rash. [] Back: Upper back tenderness with trigger point. Neurologic: Alert and oriented X 3, normal motor function, normal sensory function, no focal deficits noted. [] Psychologic: Affect normal, judgement normal, mood normal. [] Current Patient Data Vital Signs Vital Signs Date Time Temp Pulse Resp B/P (MAP) Pulse Ox O2 Delivery O2 Flow Rate FiO2 10/27/19 18:40 98.2 94 12 159/60 (93) 98 98.2 Lab Values Laboratory Tests Test 10/27/19 19:40 10/27/19 21:14 10/27/19 21:34 White Blood Count 6.2 x10^3/uL (4.0-11.0) Red Blood Count 4.15 x10^6/uL (3.50-5.40) Hemoglobin 12.4 g/dL (12.0-15.5) Hematocrit 35.9 % (36.0-47.0) L Mean Corpuscular Volume 86 fL (79-100) Mean Corpuscular Hemoglobin 30 pg (25-35) Mean Corpuscular Hemoglobin Concent 35 g/dL (31-37) Red Cell Distribution Width 13.6 % (11.5-14.5) Platelet Count 276 x10^3/uL (140-400) Neutrophils (%) (Auto) 73 % (31-73) Lymphocytes (%) (Auto) 19 % (24-48) L Monocytes (%) (Auto) 6 % (0-9) Eosinophils (%) (Auto) 1 % (0-3) Basophils (%) (Auto) 1 % (0-3) Neutrophils # (Auto) 4.6 x10^3/uL (1.8-7.7) Lymphocytes # (Auto) 1.2 x10^3/uL (1.0-4.8) Monocytes # (Auto) 0.4 x10^3/uL (0.0-1.1) Eosinophils # (Auto) 0.0 x10^3/uL (0.0-0.7) Basophils # (Auto) 0.1 x10^3/uL (0.0-0.2) Sodium Level 132 mmol/L (136-145) L Potassium Level 4.1 mmol/L (3.5-5.1) Chloride Level 97 mmol/L (98-107) L Carbon Dioxide Level 29 mmol/L (21-32) Anion Gap 6 (6-14) Blood Urea Nitrogen 19 mg/dL (7-20) Creatinine 1.2 mg/dL (0.6-1.0) H Estimated GFR (Cockcroft-Gault) 47.6 BUN/Creatinine Ratio 16 (6-20) Glucose Level 528 mg/dL (70-99) *H Calcium Level 8.8 mg/dL (8.5-10.1) Total Bilirubin 0.3 mg/dL (0.2-1.0) Aspartate Amino Transferase (AST) 13 U/L (15-37) L Alanine Aminotransferase (ALT) 16 U/L (14-59) Alkaline Phosphatase 136 U/L (46-116) H Total Protein 7.4 g/dL (6.4-8.2) Albumin 2.7 g/dL (3.4-5.0) L Albumin/Globulin Ratio 0.6 (1.0-1.7) L Acetone Level Neg (NEG) Urine Collection Type Unknown Urine Color Yellow Urine Clarity Clear Urine pH 5.5 Urine Specific [place] >=1.030 Urine Protein 100 mg/dL (NEG-TRACE) Urine Glucose (UA) >=1000 mg/dL (NEG) Urine Ketones (Stick) Negative mg/dL (NEG) Urine Blood Moderate (NEG) Urine Nitrite Negative (NEG) Urine Bilirubin Negative (NEG) Urine Urobilinogen Dipstick 0.2 mg/dL (0.2 mg/dL) Urine Leukocyte Esterase Moderate (NEG) Urine RBC 6-10 /HPF (0-2) Urine WBC Tntc /HPF (0-4) Urine Squamous Epithelial Cells Few /LPF Urine Bacteria Many /HPF (0-FEW) Glucose (Fingerstick) 251 mg/dL (70-99) H Laboratory Tests 10/27/19 19:40 Laboratory Tests 10/27/19 19:40 EKG EKG [] Radiology/Procedures Radiology/Procedures [][facility] [address] [place] [address] IMAGING REPORT Signed PATIENT: BEN WHEATLEYOUNT: [id number] : 1970 LOCATION: ER AGE: 49 SEX: F EXAM STATUS: REG ER ORD. PHYSICIAN: WALTER GREGORIO APRN REASON: headache, dizziness PROCEDURE: CT HEAD WO CONTRAST CT Head W/O Contrast: History: Headache and dizziness Comparison: none Axial images were obtained without contrast. The mcarthur and white matter appears normal and symmetrical for the patients age. There is no mass effect, extraaxial fluid collections or hydrocephalus. There is no gross bleed. There is no focal loss of mcarthur-white matter distinction to suggest acute ischemia, i.e. stroke. Impression: No acute findings. RS Compliance Statement: One or more of the following individualized dose reduction techniques were utilized for this examination: 1. Automated exposure control 2. Adjustment of the mA and/or kV according to patient size 3. Use of iterative reconstruction technique Electronically signed by: Ivy Galvan III, MD (10/27/2019 9:23 PM) [facility] DICTATED and SIGNED BY: IVY GALVAN III, MD DATE: 10/27/192122 Course & Med Decision Making Course & Med Decision Making Pertinent Labs and Imaging studies reviewed. (See chart for details) Performed 3 trigger point injections in upper back which improved pain (2% lidocaine 0.5 mL x 3). Will also get CT head, labs, and will give medication. CT is unremarkable. Headache improved with trigger point injections. Patient labs showed that she was dehydrated and her blood sugar was 528. Gave patient 1 L of fluids and 10 Units of Insulin. Blood sugar improved to 251. Will d/c home. Gave precautions to patient to make sure to check sugars and follow up with primary care provider. Urine shows blood and leukocytes. Will place on Keflex. Michelle Disclaimer Jeisonon Disclaimer This electronic medical record was generated, in whole or in part, using a voice recognition dictation system. Departure Departure Impression: Primary Impression: Tension headache Additional Impressions: Dehydration Hyperglycemia Urinary tract infection Disposition: HOME, SELF-CARE Condition: STABLE Referrals: NO PCP (PCP) Patient Instructions: Dehydration, Adult, Hyperglycemia, Tension Headache, Urinary Tract Infection Additional Instructions: Thank you for visiting [facility]. We appreciate you trusting us with your care. If any additional problems come up don't hesitate to return to visit us. Please follow up with your primary care provider so they can plan additional care if needed and know about the problem that you had. If symptoms worsen come back to the Emergency Department. Any concerning symptoms that start such as chest pain, shortness of air, weakness or numbness on one side of the body, running high fevers or any other concerning symptoms return to the ER. Please be aware that diabetes can cause your sugars to fluctuate while you are sick. This can cause additional issues. Please check your sugars often to ensure they are staying in a safe range and if you are on insulin please take as instructed by your primary care doctor. If you have any questions about this please let us know or contact your primary care provider for additional instruction about taking your insulin while you are sick. If you get concerned regarding your sugar while at home please do not hesitate to come back to the ER. Please make sure to drink plenty of water and follow-up with your primary care doctor as soon as you can. You have been prescribed an antibiotic today to help fight your infection. Please take all of the antibiotic as directed. If after 48 hours the infection is not improving, please return for more care. If the infection worsens, return to ER for additional care. Scripts Cephalexin (KEFLEX) 500 Mg Capsule 1 CAP PO BID for 7 Days, #14 CAP 0 Refills Prov: WALTER GREGORIO SIGIFREDO 10/27/19 Problem Qualifiers Additional Impressions: Urinary tract infection Urinary tract infection type: acute cystitis Hematuria presence: with hematuria Qualified Codes: N30.01 - Acute cystitis with hematuria WALTER GREGORIO APRN Oct 27, 2019 20:02
[2019-10-27] MEDS ORDERED: INSULIN REGULAR 100 UNIT/ML 3ML VIAL. IV STA (20:05)
[2019-10-27] MEDS ORDERED: IV NORMAL SALINE 1000ML BAG 1,000 ML IV STA (20:05)
[2019-10-27] MEDS ORDERED: ORPHENADRINE CITRATE 60 MG/2 ML VIAL. IV ONE (20:15)
[2019-10-27] MEDS ORDERED: PROCHLORPERAZINE 10 MG/2 ML VIAL. IV ONE (20:15)
[2019-10-27 21:20] LABS: BILIRUBIN,URINE NEGATIVE (NEG); CLARITY,URINE CLEAR; COLOR,URINE YELLOW; NITRITE,URINE NEGATIVE (NEG); PH,URINE 5.5; PROTEIN,URINE 100 mg/dL (NEG-TRACE); UROBILINOGEN,URINE 0.2 mg/dL (0.2 mg/dL)
--- NOTE | 2019-10-27 21:26 | RAD ---
CT Head W/O Contrast: History: Headache and dizziness Comparison: none Axial images were obtained without contrast. The mcarthur and white matter appears normal and symmetrical for the patients age. There is no mass effect, extraaxial fluid collections or hydrocephalus. There is no gross bleed. There is no focal loss of mcarthur-white matter distinction to suggest acute ischemia, i.e. stroke. Impression: No acute findings. RS Compliance Statement: One or more of the following individualized dose reduction techniques were utilized for this examination: 1. Automated exposure control 2. Adjustment of the mA and/or kV according to patient size 3. Use of iterative reconstruction technique Electronically signed by: Neeraj Bender III, MD (10/27/2019 9:23 PM) [id number]
[2019-10-27 21:30] LABS: SQUAMOUS EPITHELIAL CELL,UR FEW /LPF
[2019-10-27 21:31] LABS: BACTERIA,URINE MANY /HPF (0-FEW); WBC,URINE TNTC /HPF (0-4)
[2019-10-27 21:35] VITALS: BP 107/59
[2019-10-27] MEDS ORDERED: CEPH-264 PO (21:59)
== END 2019-10-27 22:04 | disposition home or self-care (01) ==
LOC: ER 18:32
DX: G44.209 Tension-type headache, unspecified, not intractable (principal); E86.0 Dehydration; R42 Dizziness and giddiness; E11.65 Type 2 diabetes mellitus with hyperglycemia; N30.01 Acute cystitis with hematuria; I10 Essential (primary) hypertension; Z79.4 Long term (current) use of insulin
CPT/HCPCS: 36415; 70450; 80053; 81001; 82010; 82962; 85025; 87086; 96361; 96374; 99285; J1815; J2001; J7030